=== PATIENT | female | born 1955 | race Two or more races ===

== ENCOUNTER 2018-10-07 08:44 | Day surgery (SDC) | payer MEDICAID ==
[2018-10-06 14:26] LABS: Basophils # (auto) 0.1 uL; Basophils % (auto) 1.4 % (0.0-2.0); Eosinophils # (auto) 0.2 uL; Eosinophils % (auto) 2.8 % (0.0-7.0); Hematocrit 44.6 % (36.0-46.0); Hemoglobin 15.6 g/dL (12.2-16.2); Lymphocytes # (auto) 1.4 uL; Lymphocytes % (auto) 21.4 % (10.0-50.0); Mean Corpuscular Hemoglobin 32.7 pg (28.0-32.0); Mean Corpuscular Hgb Conc. 34.9 g/dL (32.0-36.0); Mean Corpuscular Volume 93.6 fL (80.0-100.0); Monocytes # (auto) 0.5 uL; Monocytes % (auto) 7.4 % (0.0-12.0); Neutrophils # (auto) 4.4 uL; Nucleated Red Blood Cells % 0.1 %; Platelet Count (auto) 196 10^3/uL (140-450); Red Blood Cells 4.77 10^6/uL (4.0-5.20); Red Cell Distribution Width 12.7 % (11.8-14.3); White Blood Cell 6.6 10^3/uL (4.4-10.8)
[2018-10-06 14:33] LABS: Urine Bacteria FEW /hpf (None Seen); Urine Blood Negative /uL (Negative); Urine Specific Gravity 1.009 (1.001-1.035); Urine WBC 52 /hpf (0 - 5)
[2018-10-06 15:04] LABS: INR 0.95 (0.9-1.15)
[2018-10-06 15:22] LABS: Albumin 3.9 g/dL (3.4-5.0); Calcium 9.2 mg/dL (8.5-10.1); Potassium 3.6 mmol/L (3.5-5.1)
[2018-10-06 15:26] LABS: BUN/Creatinine Ratio 16.7; Bilirubin, Total 0.5 mg/dL (0.2-1.0); Total Protein 8.7 g/dL (6.4-8.2)
[~2018-10-07] VITALS: Ht 175.3 cm; Wt 92.1 kg
[~2018-10-07 08:44] MED LIST: AMLO10TA13 PO; HYDR25TA4 PO
[2018-10-07] MEDS ORDERED: ceFAZolin 1GM/50ML 50 ML IV ONE (09:32)
[2018-10-07] MEDS ORDERED: MIDAZOLAM HCL 1MG/1ML-2 ML VIAL ONE (12:09)
[2018-10-07] MEDS ORDERED: DexAMETHasone SOD PHOS 10MG/1ML VIAL INJ ONE (12:09)
[2018-10-07] MEDS ORDERED: PROPOFOL 10 MG/ML 20 ML IV ONE (12:09)
[2018-10-07] MEDS ORDERED: ONDANSETRON HCL 4 MG/2 ML VIAL ONE (12:09)
[2018-10-07] MEDS ORDERED: MEPERIDINE HCL (50 MG/ML) 1 ML VIAL ONE (12:09)
[2018-10-07] MEDS ORDERED: ePHEDrine SULFATE 50 MG/ML AMP ONE (12:09)
[2018-10-07] MEDS ORDERED: ROPIVACAINE 0.5% (5MG/ML) 20ML AMPULE IJ ONE ×2 (12:13→13:04)
[2018-10-07 14:02] VITALS: BP 137/93
== END 2018-10-07 14:10 | disposition home or self-care (01) ==
LOC: SUR 08:44
PROVIDERS: ATTEND Podiatrist Foot & Ankle Surgery
DX: M67.472 Ganglion, left ankle and foot (principal); M89.8X7 Other specified disorders of bone, ankle and foot; M25.775 Osteophyte, left foot; M20.12 Hallux valgus (acquired), left foot; I10 Essential (primary) hypertension; F41.9 Anxiety disorder, unspecified; E66.9 Obesity, unspecified; Z79.899 Other long term (current) drug therapy; Z90.49 Acquired absence of other specified parts of digestive tract; Z98.890 Other specified postprocedural states; Z88.2 Allergy status to sulfonamides; Z68.30 Body mass index [BMI] 30.0-30.9, adult
CPT/HCPCS: 28090; 28122; 28296; 36415; 73620; 80053; 81001; 85025; 85610; 85730; 88304; 88305; 88311; 93005; C1713; C1769; J0690; J1100; J2175; J2250; J2405; J2704; J2795

== ENCOUNTER → 2019-01-13 | Day surgery (SDC) | payer MEDICAID ==
[~2019-01-13] VITALS: Ht 175.3 cm; Wt 90.7 kg
[~2019-01-13] MED LIST changes: +MIDAZOLAM HCL 1MG/1ML-2 ML VIAL ONE; +ONDANSETRON HCL 4 MG/2 ML VIAL IV PRN; +PROPOFOL 10 MG/ML 20 ML IV ONE; +ceFAZolin 1GM/50ML 50 ML IV ONE; +ePHEDrine SULFATE 50 MG/ML AMP IV PRN; +fentaNYL CITRATE 100 MCG/2 ML VL IV PRN; +fentaNYL CITRATE 100 MCG/2 ML VL ONE; +hydrALAZINE HCL 20 MG/ML VL IV PRN
[2019-01-13 14:00] LABS: Basophils # (auto) 0 uL; Basophils % (auto) 0.8 % (0.0-2.0); Eosinophils # (auto) 0.1 uL; Eosinophils % (auto) 2.1 % (0.0-7.0); Hematocrit 43.1 % (36.0-46.0); Hemoglobin 14.7 g/dL (12.2-16.2); Lymphocytes # (auto) 1.4 uL; Lymphocytes % (auto) 23.5 % (10.0-50.0); Mean Corpuscular Hemoglobin 31.4 pg (28.0-32.0); Mean Corpuscular Hgb Conc. 34.1 g/dL (32.0-36.0); Mean Corpuscular Volume 92.1 fL (80.0-100.0); Monocytes # (auto) 0.5 uL; Monocytes % (auto) 8.6 % (0.0-12.0); Neutrophils # (auto) 3.8 uL; Nucleated Red Blood Cells % 0.1 %; Platelet Count (auto) 189 10^3/uL (140-450); Red Blood Cells 4.68 10^6/uL (4.0-5.20); Red Cell Distribution Width 12.9 % (11.8-14.3); White Blood Cell 5.8 10^3/uL (4.4-10.8)
[2019-01-13 14:15] LABS: INR 1.08 (0.9-1.15); Partial Thromboplastin Time 26.9 sec (23.64-32.05)
[2019-01-13 14:16] LABS: Potassium 3.3 mmol/L (3.5-5.1)
[2019-01-13 14:17] LABS: BUN/Creatinine Ratio 21.4; Calcium 9.2 mg/dL (8.5-10.1)
[2019-01-13 16:17] VITALS: BP 147/89
== END | disposition home or self-care (01) ==
LOC: SUR 10:55
PROVIDERS: ATTEND Podiatrist Foot & Ankle Surgery
DX: M20.11 Hallux valgus (acquired), right foot (principal); M21.611 Bunion of right foot; I10 Essential (primary) hypertension; Z88.2 Allergy status to sulfonamides; Z79.899 Other long term (current) drug therapy; Z98.890 Other specified postprocedural states
CPT/HCPCS: 28296; 36415; 73620; 80048; 85025; 85610; 85730; C1713; C1769; J0690; J2250; J2704; J3010